=== PATIENT | male | born 1985 | race Caucasian/White ===

== ENCOUNTER 2019-12-26 21:51 | Inpatient (IN) | payer MEDICAID ==
[~2019-12-26] VITALS: Ht 167.6 cm; Wt 94.8 kg
[2019-12-26 22:01] VITALS: BP_SYST 111
--- NOTE | 2019-12-26 22:31 | NUR ---
Placed in room 7 . Placed on shipyard painter helper, blood pressure machine and pulse oximeter. To gown for exam. Side rails up. Report given to SAVI GOOD.
--- NOTE | 2019-12-26 22:45 | NUR ---
Pt brought in by ALS. Pt awake, alert, oriented x4. Pt states that he had sharp chest pain today starting at 2100. Pt states that chest pain radiates to the L shoulder, L arm, and back. Pt states that the pain was unprovoked, and has no relieving factors. pt states he has mild sob, especcially when taking deep breaths. Pt denies syncope, dizziness, nausea, vomiting, diarrhea. Pt denies any other medical complaint at this time. Pt resting in ed bed comfortably, no acute distress at this time. vss
--- NOTE | 2019-12-26 23:26 | NUR ---
ER at bedside examining patient.
[2019-12-26 23:44] LABS: BASOPHILS % (AUTO) 0.4 % (0.0-2.0); EOSINOPHILS # (AUTO) 0.1 K/uL (0.0-0.4); EOSINOPHILS % (AUTO) 0.6 % (0.0-4.0); HEMATOCRIT 40.1 % (36-54); HEMOGLOBIN 13.6 g/dL (14.0-18.0); LYMPHOCYTES % (AUTO) 10.8 % (20.5-51.5); MEAN CORPUSCULAR HEMOGLOBIN 30 pg (27-31); MEAN CORPUSCULAR HGB CONC 34 % (32-36); MEAN CORPUSCULAR VOLUME 88 fL (79.0-98.0); MONOCYTES # (AUTO) 0.8 K/uL (0.0-1.0); MONOCYTES % (AUTO) 8.3 % (1.7-9.3); NEUTROPHILS # (AUTO) 7.5 K/uL (1.8-7.7); NEUTROPHILS % (AUTO) 79.9 % (40.0-70.0); PLATELET COUNT (AUTO) 213 K/uL (130-430); RED BLOOD CELL COUNT(AUTO) 4.56 MIL/uL (4.2-6.2); RED CELL DISTRIBUTION WIDTH 13.8 % (9.0-15.0); WHITE BLOOD COUNT (AUTO) 9.4 K/uL (4.8-10.8)
[2019-12-26 23:57] LABS: CALCIUM 8.6 mg/dL (8.4-11.0); CREATININE 0.7 mg/dL (0.55-1.30); POTASSIUM 3.5 mmol/L (3.5-5.1)
[2019-12-27] VITALS (13 sets, daily range): BP systolic 117–147
[2019-12-27] MEDS ORDERED: MORPHINE 4 MG/ML INJ. SYRINGE IVP ONE
[2019-12-27 00:01] LABS: PROTHROMBIN TIME 10.4 SECS (9.5-12.5)
[2019-12-27 00:11] LABS: ALBUMIN 3.5 g/dL (3.4-4.8); TOTAL BILIRUBIN 0.3 mg/dL (0.0-1.0)
--- NOTE | 2019-12-27 00:40 | NUR ---
Pt resting in ED bed comfortably. No acute distress at this time. Pt states he is feeling much better after pain meds.
[2019-12-27] MEDS ORDERED: IOHEXOL 350 mgI/mL, 150 ML INFUS..BTL IV ONE (01:49)
--- NOTE | 2019-12-27 02:00 | NUR ---
Pt resting in ED bed. Pt requested lights be turned off.
[2019-12-27] MEDS ORDERED: fentaNYL CITRATE/PF 100 MCG/2 ML AMP IVP ONE (02:15)
[2019-12-27] MEDS ORDERED: ENOXAPARIN SODIUM 100 MG/ML SYRINGE SUBCUT ONE ×2 (02:30→15:30)
--- NOTE | 2019-12-27 03:35 | NUR ---
Pt States pain is mildy improved. No other medical complaints at this time. Pt denies shortness of breath
--- NOTE | 2019-12-27 04:15 | NUR ---
Patient will be admitted to care of . Admitted to Tele unit. Will go to room 116A. Belongings list completed. Complete and up to date summary report printed. SBAR report to be given at bedside with opportunity for questions.
--- NOTE | 2019-12-27 05:50 | NUR ---
Transfer to Tele via ACLS protocol. Licensed nurse present. IV present no signs or symptoms of infiltration.
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
--- NOTE | 2019-12-27 06:22 | NUR ---
pt c/o severe pain to his chest , will call
--- NOTE | 2019-12-27 06:28 | NUR ---
MD CALLED : DR BARAHONA CALLED , NOTIFIED MD THAT PT IS C/O SEVERE PAIN TO HEENA CHEST , MD ORDERED MORPHINE 2 MG IVP Q4HRS PRN FOR SEVERE PAIN .
[2019-12-27] MEDS: MORPHINE 2 MG/ML INJ. SYRINGE IVP PRN ×3 (06:41→23:37)
--- NOTE | 2019-12-27 07:30 | NUR ---
REPORT RECEIVED FROM NIGHT RN. PATIENT AAOX4, IN NO APPARENT DISTRESS, HOWEVER CONDITION APPEARS UNPREDICTABLY GUARDED.
--- NOTE | 2019-12-27 07:30 | NUR ---
CLOSING NOTES; REPORT GIVEN TO RN AT BEDSIDE ; PT IS STILL C/O PAIN , PRIMARY RN IS AWARE . PT RECEIVED PAIN MEDICATION EARLIER . REQUESTED RN TO NOTIFY .
--- NOTE | 2019-12-27 08:30 | NUR ---
Patient voided 350 ml via urinal. Urine color dark yellow
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
--- NOTE | 2019-12-27 08:45 | NUR ---
CALL TO DR BARAHONA RE: PATIENT IN SEVERE PAIN 08/22, NO AVAIL PRN MEDS FOR ADMINISTRATION NOW. STATES HE WILL SEE PATIENT IN 15 MIN.
--- NOTE | 2019-12-27 09:03 | NUR ---
ROUNDS WITH DR BARAHONA TO PATIENTS ROOM. PATIENT IS ALBANIAN SPEAKER ONLY.
--- NOTE | 2019-12-27 09:06 | NUR ---
MD SAW PATIENT, ORDERED STAT CT OF ABDOMEN, CONSULT FOR PULMO.-DR MUÑIZ CALLED BY . NEW PAIN MED ORDER. PENDING TRANSFER TO ICU. WOOL PULLER MADE AWARE.
[2019-12-27] MEDS ORDERED: LORazepam 2 MG/ML VIAL IVP PRN (09:15)
[2019-12-27] MEDS ORDERED: MUPIROCIN 2% TOPICAL OINTMENT 22 GM NS PRN (09:15)
[2019-12-27] MEDS ORDERED: ACETAMINOPHEN 325 MG TABLET PO PRN (09:15)
[2019-12-27] MEDS ORDERED: MAGNESIUM SULFATE 50 ML IV PRN (09:15)
[2019-12-27] MEDS ORDERED: ONDANSETRON HCL 4 MG/2 ML VIAL IVP PRN ×2 (09:15→10:00)
[2019-12-27] MEDS ORDERED: ZOLPIDEM TARTRATE 5 MG TABLET PO PRN (09:15)
--- NOTE | 2019-12-27 09:16 | NUR ---
CONSULTATION PAGED/CALLED Reason for Consultation: [] L CHEST PAIN Person Who was Notified: [] LENA FROM ICU (DR SCHUSTER WAS IN ICU) Consulting Physician: [] DR SCHUSTER Lead Data Architect Specialty: [] GEOGRAPHIC INFORMATION SCIENTIST Ordering Physician: [] DR BARAHONA
--- NOTE | 2019-12-27 09:30 | NUR ---
RECIEVED CALL FROM DR LINDQUIST -SURGEON, GAVE REPORT OF PATIENT STATUS, DR VERBALIZED HAVING PATIENT SENT TO A TRAUMA CENTER. GAVE PHE AT THIS POINT TO DR BARAHONA AT THE NURSES STATION.
--- NOTE | 2019-12-27 09:33 | NUR ---
CONSULTATION PAGED/CALLED Reason for Consultation: [] INT ABD PAIN Person Who was Notified: [] TYLER Consulting Physician: [] DR LINDQUIST Die Maker Apprentice Specialty: [] GEN SURGEON Ordering Physician: [] DR Lita BARAHONA
[2019-12-27] MEDS ORDERED: HYDROmorphone 2 MG/ML VIAL ONE (09:35)
--- NOTE | 2019-12-27 09:50 | NUR ---
PATIENT MEDICATED FOR PAIN 08/22 EARLIER W/ DILAUDID 2MG, @ PRESENT VERBALIZES RELIEF FROM PAIN- 03/22. ON GURNEY, BEING TRANSPORTED TO CT SCAN FOR STAT CT OF ABD AND PELVIS. CONDITION GUARDED.
[2019-12-27] MEDS ORDERED: IOHEXOL 100 ML IV ONE (10:08)
--- NOTE | 2019-12-27 10:15 | NUR ---
PATIENT BACK FROM CT SCAN. AAOX4. VANDANA.
--- NOTE | 2019-12-27 11:56 | NUR ---
DR BARAHONA CALLED, RETURNED CALL NEW ORDERS FOR Q2H DILAUDID 2MG IVP. BLADDER SCAN DONE WNL 175, NO DISTRESS, PT W/ NO C/O SUPRAPUBIC PAIN, VOIDED 350ML EARLIER (829) WITHOUT C/O PAIN OR DISCOMFORT, DARK JEAN COLOR.
--- NOTE | 2019-12-27 13:19 | NUR ---
RAPID RESPONSE IN PROGRESS. ALL DESIGNATED PERSONNEL AT BEDSIDE.
--- NOTE | 2019-12-27 13:35 | NUR ---
PT FOR TRANSFER TO ICU, PATIENT W/ A PATENT RIGHT AC 20G IV HL, NON-REBREATHER MASK IN USE ON Pt., CXR DONE, ABG DONE....SEE RAPID RESPONSE REPORT FOR ADDITIONAL DETAILS.
--- NOTE | 2019-12-27 13:40 | NUR ---
DR BARAHONA CALLED FOR ORDERS AND MADE AWARE OF PATIENT STATUS. ASKED FOR US TO CALL PROJ MGR DR MUÑIZ.
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
--- NOTE | 2019-12-27 13:50 | NUR ---
ER MD DR ROY SPOKE W/ DR BARAHONA AND DR MUÑIZ AT NURSES STATION, RE: PATIENT AND PRESENT STATUS.
--- NOTE | 2019-12-27 14:05 | NUR ---
REPORT TO HEEL BOOM OPERATORFLORENTINO BARNES.
--- NOTE | 2019-12-27 14:10 | NUR ---
Received patient and endorsed report. Patient denies pain. Side rails x 3 up. Call light with in reach.
--- NOTE | 2019-12-27 14:30 | NUR ---
Patient left floor for ct scan of head.
--- NOTE | 2019-12-27 14:40 | NUR ---
ER MD at bedside due request due to patient's statement of unable to breathe, respirations at 42, heart rate of 154, 02 sat on nonrebreather 15 liters 96.
[2019-12-27] MEDS ORDERED: ENOXAPARIN SODIUM 60 MG/0.6 ML SYRINGE SUBCUT ONE (15:00)
--- NOTE | 2019-12-27 15:30 | NUR ---
Transferred patient to room 127 A for ICU status. Patient tolerated via gurney on non-rebreather 15 liters and portable tele and 02 monitor, tolerated well. informed of transfer. Set patient up on continuous monitoring. Assessed vital signs. Denies pain.
[2019-12-27] MEDS: D5NS 1,000 ML IV SCH ×2 (16:02→20:18)
[2019-12-27] MEDS: HYDROmorphone 2 MG/ML VIAL IVP PRN ×2 (16:08→20:17)
--- NOTE | 2019-12-27 16:40 | NUR ---
MD Short new order to change nonrebreather to oximizer 4 liters keep sats over 92. Patient tolerated change well, satting at 96. Respiratory therapist aware.
--- NOTE | 2019-12-27 18:20 | NUR ---
Offered to perform CHG bath, change gown, perform oral and perineal care, patient requested to have perform tasks instead.
--- NOTE | 2019-12-27 18:30 | NUR ---
PSYCHIATRIC NP CHARLEEN OF [facility] CONFIRMED THAT SHE HAD RECEIVED ALL MEDICAL INFORMATION THRU FAX. SHE STATED THAT SHE WILL CONTACT THE TRAUMATIST FOR THIS MATTER.
--- NOTE | 2019-12-27 18:55 | NUR ---
TELEMARKETER SUPERVISOR. CHARLEEN OF [facility] CALLED BACK AND STATED THAT JIMENEZ DAHL (INTERNAL CONTROLS ANALYST) HAD SEEN THE REPORT. SHE ALSO SAID THAT THE PULMONOGIST EXPRESSED THAT THE PATIENT IS NOT A CANDIDATE FOR AN IVC FILTER, THAT HE MAY NEED TO BE ON ELIQUIS MEDS. DR BARAHONA WAS PAGED, HE RETURNED THE CALL, COMMUNICATED TO THE MD ON THE INTERNAL CONTROLS ANALYST'S ADVICE. HE SAID TO CONSULT A GOLF TOURNAMENT CONSULTANT, DR SU.
--- NOTE | 2019-12-27 19:15 | NUR ---
OPENING NOTE SBAR REPORT RECEIVED FROM RENEE GOOD. CARE ASSUMED. PT LAYING IN BED SLEEPING. PT ANO X 4. PT ON 4L OXIMIZER SATURATION @ 91%. RESPIRATION EVEN AND UNLABORED. PT SINUS TACHYCARDIA ON MONITOR RATE OF 132. PT HAS 20G TO RIGHT AC RUNNING D5/NS @ 100 ML/HR. NO EDEMA NOTED. PT VOIDING IN URINAL. URINE JEAN. SKIN INTACT. AT BEDSIDE. BED LOCKED IN LOWEST POSITION. CALL LIGHT WITH IN REACH. SAFETY PRECAUTIONS IN PLACE. WILL CONTINUE TO MONITOR.
--- NOTE | 2019-12-27 19:28 | NUR ---
Endorsed and gave report to oncoming nurse. Patient in bed in no acute distress. Denies pain. Breathing even and unlabored. Call light with in reach. Side rails x 3 up.
--- NOTE | 2019-12-27 19:38 | NUR ---
CONSULT: CONSULT CALLED FOR DR. SU I SPOKE WITH BHAVNA LIANG DR. CAD DRAFTSMAN AT THIS MOMENT REASON FOR CONSULT: PULMONARY EMBOLISM REQUESTING CONSULT: DR. BARAHONA SUPERVISOR PHOSPHATIC FERTILIZER PHONE NUMBER: [phone]
[2019-12-27] MEDS: ENOXAPARIN SODIUM 100 MG/ML SYRINGE SUBCUT SCH (20:19)
--- NOTE | 2019-12-27 20:54 | NUR ---
MD RANGEL SPOKE TO MD MUÑIZ REGARDING TRANSFER UPDATE. MD MUÑIZ AWARE PT NOT A CANDIDATE FOR TRANSFER. DR. MUÑIZ STATES SHE WILL SEE PATIENT IN THE MORNING. WILL CONTINUE TO MONITOR.
--- NOTE | 2019-12-27 23:38 | NUR ---
MD UPDATE SPOKE TO DR. POLANCO BULK CLERK. ORDERS UPDATED. WILL CONTINUE TO MONITOR.
[2019-12-28] VITALS (24 sets, daily range): BP systolic 121–152
--- NOTE | 2019-12-28 00:05 | NUR ---
MD UPDATE SPOKE TO DR. POLANCO. INFORMED MD WE ARE UNABLE TO ORDER PROTHROMBIN MUTATION LAB AND LUPUS ANTICOAGULATION PANEL. MD AWARE. WILL CONTINUE TO MONITOR.
[2019-12-28] MEDS: HYDROmorphone 2 MG/ML VIAL IVP PRN ×10 (00:21→22:48)
[2019-12-28 06:48] LABS: BASOPHILS % (AUTO) 0.2 % (0.0-2.0); EOSINOPHILS % (AUTO) 0.1 % (0.0-4.0); HEMATOCRIT 37.2 % (36-54); HEMOGLOBIN 12.5 g/dL (14.0-18.0); LYMPHOCYTES # (AUTO) 0.7 K/uL (1.0-5.5); LYMPHOCYTES % (AUTO) 4.6 % (20.5-51.5); MEAN CORPUSCULAR HEMOGLOBIN 30 pg (27-31); MEAN CORPUSCULAR HGB CONC 34 % (32-36); MEAN CORPUSCULAR VOLUME 89 fL (79.0-98.0); MONOCYTES # (AUTO) 1.5 K/uL (0.0-1.0); MONOCYTES % (AUTO) 9.1 % (1.7-9.3); NEUTROPHILS # (AUTO) 13.9 K/uL (1.8-7.7); PLATELET COUNT (AUTO) 237 K/uL (130-430); RED BLOOD CELL COUNT(AUTO) 4.18 MIL/uL (4.2-6.2); RED CELL DISTRIBUTION WIDTH 13.5 % (9.0-15.0); WHITE BLOOD COUNT (AUTO) 16.2 K/uL (4.8-10.8)
[2019-12-28 07:03] LABS: CREATININE 0.67 mg/dL (0.55-1.30); POTASSIUM 3.7 mmol/L (3.5-5.1)
--- NOTE | 2019-12-28 07:15 | NUR ---
patient complained of left lower chest/ribs pain 9/10 scale sharp medicated with dilaudid 2 mg ivp. am assessment done. ivf infusing @ right ac#20 with good blood return.family at bedside. informed about the poc verbalized understanding. encourage to call when assistance needed. will monitor.
--- NOTE | 2019-12-28 07:20 | NUR ---
CLOSING NOTE PT LAYING IN BED. NO APPARENT DISTRESS NOTED. SBAR REPORT GIVEN TO KRISTOFER GOOD. CARE ENDORSED.
[2019-12-28] MEDS: D5NS 1,000 ML IV SCH ×2 (07:35→19:10)
[2019-12-28] MEDS: ENOXAPARIN SODIUM 100 MG/ML SYRINGE SUBCUT SCH ×2 (09:00→21:21)
--- NOTE | 2019-12-28 09:22 | NUR ---
New consult paged to Dr. Knight. Spoke with Emiliana solano.
--- NOTE | 2019-12-28 10:06 | NUR ---
MD rounds: Seen by Dr. Erickson discuss about the POC with pt and spouse at bedside. pt having hiccups new order received.
[2019-12-28] MEDS ORDERED: LACT1CAP58 PO (10:22)
[2019-12-28] MEDS ORDERED: MELA3TAB64 PO (10:22)
[2019-12-28] MEDS ORDERED: DOCU250C14 PO (10:22)
[2019-12-28] MEDS ORDERED: WARF2TAB2 PO (10:22)
[2019-12-28] MEDS ORDERED: GABA-533 PO (10:22)
[2019-12-28] MEDS ORDERED: LIP40 PO (10:22)
[2019-12-28] MEDS ORDERED: GABA-529 PO (10:22)
[2019-12-28] MEDS ORDERED: TRAM50TA2 PO (10:24)
[2019-12-28] MEDS ORDERED: GABAPENTIN 100 MG CAPSULE PO ONE (11:00)
[2019-12-28] MEDS ORDERED: CEFEPIME 1 GM in D5W 50 ML IV ONE (12:00)
--- NOTE | 2019-12-28 12:19 | NUR ---
Nutrition Update Fransico Scale 17 noted. Pt admitted for bilateral PNA Diet: 2gmNa BMI: 33.8 kg/m2 RD to follow per nutrition care standards.
[2019-12-28] MEDS: THORAZINE (chlorproMAZINE) 25 MG TAB PO PRN ×2 (13:28→23:18)
--- NOTE | 2019-12-28 14:47 | NUR ---
oncology/hematology: Md Guy is here seen patient and discuss about the POc with patient and family member at the bedside.
--- NOTE | 2019-12-28 14:59 | NUR ---
urine sample was collected and sent to lab for urinalysis.
[2019-12-28 15:20] LABS: BILIRUBIN,URINE 2+ (NEGATIVE); BLOOD, URINE 2+ (NEGATIVE); COLOR,URINE ORANGE (YELLOW); GLUCOSE,URINE NEGATIVE (NEGATIVE); KETONES,URINE NEGATIVE (NEGATIVE); LEUKOCYTE ESTERASE ,URINE NEGATIVE (NEGATIVE); NITRITE, URINE POSITIVE (NEGATIVE); PH,URINE 5.5 (5.0-8.0); PROTEIN URINE 2+ (NEGATIVE); UROBILINOGEN,URINE 0.2 (0.2-1.0)
--- NOTE | 2019-12-28 15:40 | NUR ---
patient resting, no s/s of distress. daughter at the bedside.
[2019-12-28 15:56] LABS: CLARITY/URINE HAZY (CLEAR)
[2019-12-28 16:02] LABS: RBC,URINE 0-3 /HPF (0-3)
[2019-12-28 16:09] LABS: BACTERIA,URINE MODERATE /HPF (None Seen); WBC,URINE 0-3 /HPF (0-3)
[2019-12-28 16:10] LABS: HYALINE CASTS, URINE 0-10 /LPF (None Seen)
[2019-12-28 16:11] LABS: MUCUS,URINE 1+ /LPF (None Seen)
--- NOTE | 2019-12-28 17:00 | NUR ---
patient c/o left lower chest pain especially moving, medicated with dilaudid 2 mg ivp. informed about the action and possible adverse reaction verbalized understanding. family at the bedside.
--- NOTE | 2019-12-28 19:16 | NUR ---
all needs mets, no s/s of distress. no significant changes noted. pain medicated. ivf infusing well site patent. vital sign stable, afebrile. report given to bushra GOOD.
--- NOTE | 2019-12-28 19:20 | NUR ---
OPENING NOTE SBAR REPORT RECEIVED FROM RENEE GOOD. CARE ASSUMED. PT LAYING IN BED SLEEPING. PT ANO X 4. PT ON 4L OXIMIZER SATURATION @ 96%. RESPIRATION EVEN AND UNLABORED. PT SINUS TACHYCARDIA ON MONITOR RATE OF 123. PT HAS 20G TO RIGHT AC RUNNING D5/NS @ 100 ML/HR. NO EDEMA NOTED. PT VOIDING IN URINAL. URINE JEAN. SKIN INTACT. DAUGHTER AT BEDSIDE. BED LOCKED IN LOWEST POSITION. CALL LIGHT WITH IN REACH. SAFETY PRECAUTIONS IN PLACE. WILL CONTINUE TO MONITOR.
[2019-12-28] MEDS: CEFEPIME 1 GM in D5W 50 ML IV SCH (21:20)
[2019-12-28] MEDS: GABAPENTIN 100 MG CAPSULE PO SCH (21:21)
[2019-12-29] VITALS (24 sets, daily range): BP systolic 103–144
[2019-12-29] MEDS: HYDROmorphone 2 MG/ML VIAL IVP PRN ×5 (03:04→22:00)
[2019-12-29] MEDS: D5NS 1,000 ML IV SCH ×3 (03:15→21:09)
[2019-12-29 06:47] LABS: BASOPHILS % (AUTO) 0.3 % (0.0-2.0); EOSINOPHILS # (AUTO) 0.1 K/uL (0.0-0.4); EOSINOPHILS % (AUTO) 0.9 % (0.0-4.0); HEMOGLOBIN 10.8 g/dL (14.0-18.0); LYMPHOCYTES % (AUTO) 10.8 % (20.5-51.5); MEAN CORPUSCULAR HEMOGLOBIN 30 pg (27-31); MEAN CORPUSCULAR HGB CONC 34 % (32-36); MEAN CORPUSCULAR VOLUME 89 fL (79.0-98.0); MONOCYTES # (AUTO) 0.8 K/uL (0.0-1.0); MONOCYTES % (AUTO) 8.5 % (1.7-9.3); NEUTROPHILS # (AUTO) 7.5 K/uL (1.8-7.7); NEUTROPHILS % (AUTO) 79.5 % (40.0-70.0); PLATELET COUNT (AUTO) 208 K/uL (130-430); RED BLOOD CELL COUNT(AUTO) 3.61 MIL/uL (4.2-6.2); RED CELL DISTRIBUTION WIDTH 13.2 % (9.0-15.0); WHITE BLOOD COUNT (AUTO) 9.5 K/uL (4.8-10.8)
--- NOTE | 2019-12-29 07:15 | NUR ---
Opening Note Received bedside report from endorsing RN for continuation of care. Received patient awake and resting in bed, denies any SOB or pain. No signs or symptoms of acute distress noted. Bed locked in lowest position, bed alarm on, and call light within reach. Fall and safety precautions in place.
[2019-12-29 07:21] LABS: ALBUMIN 2.6 g/dL (3.4-4.8); CALCIUM 8.3 mg/dL (8.4-11.0); CREATININE 0.58 mg/dL (0.55-1.30); POTASSIUM 3.4 mmol/L (3.5-5.1); TOTAL BILIRUBIN 0.7 mg/dL (0.0-1.0)
[2019-12-29] MEDS: THORAZINE (chlorproMAZINE) 25 MG TAB PO PRN ×2 (08:05→18:18)
[2019-12-29] MEDS: GABAPENTIN 100 MG CAPSULE PO SCH ×2 (08:05→21:09)
[2019-12-29] MEDS: CEFEPIME 1 GM in D5W 50 ML IV SCH ×2 (08:05→21:09)
[2019-12-29] MEDS: ENOXAPARIN SODIUM 100 MG/ML SYRINGE SUBCUT SCH ×2 (08:08→21:10)
--- NOTE | 2019-12-29 08:30 | NUR ---
Dr. Palumbo at bedside examining patient. New orders received.
--- NOTE | 2019-12-29 08:50 | NUR ---
Dr. Erickson at bedside examining patient. No new orders.
[2019-12-29] MEDS ORDERED: LORazepam 2 MG/ML VIAL IVP PRN (11:30)
--- NOTE | 2019-12-29 11:39 | NUR ---
Dr. Short at bedside examining patient. New orders received.
--- NOTE | 2019-12-29 14:51 | NUR ---
Family at bedside. Updated on patient status and plan of care. All questions answered clearly and education provided.
--- NOTE | 2019-12-29 15:57 | NUR ---
Dietitian Recommendations * Continue 2gmNa diet * Ensure Clear w/ meals. Each serving provides 240kcal and 8gPro. * Encourage PO intake * [place] food preferences as able Please see Nutrition Assessment for further details. LT, RD
--- NOTE | 2019-12-29 19:25 | NUR ---
Endorsement Endorsed bedside report to oncoming RN using SBAR approach for continuation of care.
--- NOTE | 2019-12-29 19:57 | NUR ---
Patient awake on and off is VERBALLY Responsive indicative of needs HOB elevated using bedside URINAL as needed skin dry warm chest movement symmetrical call huggins given to patient / .
--- NOTE | 2019-12-29 22:36 | NUR ---
DILAUDID 1 MG IVP ADMINISTER FOR GENERAL PAIN 7/10 OFF LOADING WITH POSITION ALSO HELPFUL .
--- NOTE | 2019-12-29 22:37 | NUR ---
LOVENOX 100 MG SUB Q. administer as ordered no S/SX OF ADVERSE REACTION NO BLEEDING NOTED .
[2019-12-30] VITALS (19 sets, daily range): BP systolic 107–138
--- NOTE | 2019-12-30 01:41 | NUR ---
OXYMIZER @ 4 LPM CHEST MOVEMENT SYMMETRICAL SKIN DRY WARM ENCOURAGE POSITION CHANGE RESPIRATIONS REGULAR ALSO UNLABORED .
--- NOTE | 2019-12-30 01:43 | NUR ---
02 SAT 96 % HOB elevated chest movement symmetrical patient awake on & off call huggins given to patient .
[2019-12-30] MEDS: HYDROmorphone 2 MG/ML VIAL IVP PRN ×6 (02:14→23:06)
--- NOTE | 2019-12-30 02:23 | NUR ---
DILAUDID 1MG IVP administer for ACUTE PAIN 05/22 position change on schedule also helpful .
[2019-12-30 06:14] LABS: BASOPHILS % (AUTO) 0.5 % (0.0-2.0); EOSINOPHILS # (AUTO) 0.1 K/uL (0.0-0.4); EOSINOPHILS % (AUTO) 2.7 % (0.0-4.0); HEMATOCRIT 31.6 % (36-54); HEMOGLOBIN 10.5 g/dL (14.0-18.0); LYMPHOCYTES # (AUTO) 1.2 K/uL (1.0-5.5); LYMPHOCYTES % (AUTO) 21.1 % (20.5-51.5); MEAN CORPUSCULAR HEMOGLOBIN 29 pg (27-31); MEAN CORPUSCULAR HGB CONC 33 % (32-36); MEAN CORPUSCULAR VOLUME 88 fL (79.0-98.0); MONOCYTES # (AUTO) 0.5 K/uL (0.0-1.0); MONOCYTES % (AUTO) 8.2 % (1.7-9.3); NEUTROPHILS # (AUTO) 3.8 K/uL (1.8-7.7); NEUTROPHILS % (AUTO) 67.5 % (40.0-70.0); PLATELET COUNT (AUTO) 233 K/uL (130-430); RED BLOOD CELL COUNT(AUTO) 3.57 MIL/uL (4.2-6.2); RED CELL DISTRIBUTION WIDTH 13.4 % (9.0-15.0); WHITE BLOOD COUNT (AUTO) 5.6 K/uL (4.8-10.8)
--- NOTE | 2019-12-30 06:22 | NUR ---
CHG Bed bath given patient Resting & tolerated .
[2019-12-30 06:30] LABS: CALCIUM 8.6 mg/dL (8.4-11.0); CHLORIDE 102 mmol/L (98-107); CREATININE 0.53 mg/dL (0.55-1.30); GLUCOSE 99 mg/dL (70-99); POTASSIUM 3.3 mmol/L (3.5-5.1); SODIUM SERUM 135 mmol/L (136-145); UREA NITROGEN, BLOOD 8 mg/dL (8-21)
[2019-12-30 06:38] LABS: GFR AFRICAN AMERICAN 230 mL/min (>90)
[2019-12-30 06:39] LABS: ANION GAP < 3 (5-15)
[2019-12-30] MEDS: CEFEPIME 1 GM in D5W 50 ML IV SCH ×2 (07:52→20:09)
[2019-12-30] MEDS: GABAPENTIN 100 MG CAPSULE PO SCH ×2 (07:52→20:09)
--- NOTE | 2019-12-30 07:53 | NUR ---
AM ASSESSMENT. PT AWAKENED TO VERBAL COMMAND, COMPLAINED OF LEFT RIB PAIN, 8/10 SCALE, HELPED PT SIT UPRIGHT IN BED, WITH WEAKNESS TO LEFT SIDE OF HIS BODY, DILAUDID 1 MG IVP FOR RIB PAIN, TRAY SERVED FOR BREAKFAST, ASSISTANCE REQUIRED TO OPEN/SLICE FOOD ON HIS PLATE.
[2019-12-30] MEDS: ENOXAPARIN SODIUM 100 MG/ML SYRINGE SUBCUT SCH ×2 (07:54→20:11)
--- NOTE | 2019-12-30 08:15 | NUR ---
RELEIF. PT EXPRESSED GOOD RELIEF OF PAIN.
--- NOTE | 2019-12-30 10:20 | NUR ---
PAGED PAGED DR.[facility] AT [phone] SPOKE WITH SHARON.
--- NOTE | 2019-12-30 10:20 | NUR ---
AUTOMOBILE LIGHTS ASSEMBLER. DR SU AT BEDSIDE, [employer] PHONE BEING USED TO HELP WITH TRANSLATION.
--- NOTE | 2019-12-30 12:47 | NUR ---
PAIN. PT VERBALIZED PAIN TO LEFT SIDE OF HIS RIBS, DILAUDID 1 MG IVP ADMINISTERED.
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
[2019-12-30 13:10] LABS: ANTITHROMBIN III ACTIVITY 117 % (75-135)
[2019-12-30] MEDS: NACL 0.9% 1,000 ML IV SCH (15:50)
--- NOTE | 2019-12-30 17:40 | NUR ---
TO [facility]. TRANSFERRED PT TO ROOM 120-A, VIA MATERIAL DISPATCHER AND [place] O2. PERSONAL BELONGINGS ACCOUNTED FOR, REPORT GIVEN TO FLORENTINO FANG.
--- NOTE | 2019-12-30 18:00 | NUR ---
transfer notes rec patient from icu with dx of bilateral pneumonia. awake alert speaks bulgarian only. ivf infusing well on the r ac. no infiltration noted. unable to move l arm at this time. resp easy and unlabored. no osb noted. bed to the lowest position and side rails up and locked. call light within reached and pt is close to the nurse station. at bedside with patient.
--- NOTE | 2019-12-30 19:15 | NUR ---
OPENING NOTES Pt and endorsement received from day shift nurse. Pt is AAOx4, lying in bed. Pt on O2 inhalation at 4L via oxymizer. Pt on IVF with NS at 60ml/hr and infusing well on right AC G20. Pt complaining of pain on left side of his abdomen, educated pt that pain med will be given when it's due. No signs of acute distress or SOB noted. Encouraged to use call light when needed. Safety precautions in place with 3 side rails up, wheels locked, bed alarm on and in lowest level. Call light with pt. Will continue to monitor.
--- NOTE | 2019-12-30 20:12 | NUR ---
ROUNDS All due meds and pain med given. No signs of acute distress noted. IVF infusing well. Safety precautions in place and call light with pt. Will continue to monitor.
[2019-12-30 21:37] LABS: PROTEIN S ACTIVITY 52 % (63-140)
[2019-12-30] MEDS: POTASSIUM CHLORIDE 20 MEQ TAB.PRT.SR PO PRN (22:22)
--- NOTE | 2019-12-30 23:06 | NUR ---
PAIN MED Pt complained of left sided abdominal pain. BP is 124/72mmHg. Dilaudid 1mg IVP given as ordered. Educated pt on safety precautions and side effects like dizziness, pt verbalized understanding. Will continue to monitor.
[2019-12-31 00:56] VITALS: BP_SYST 124
--- NOTE | 2019-12-31 02:00 | NUR ---
ROUNDS Pt is resting in bed with both eyes closed, with visible chest rise and fall with non-labored breathing noted. No complains of pain and no signs of acute distress noted. IVF infusing well. Safety precautions in place and call light with pt. Will continue to monitor.
[2019-12-31] MEDS: NACL 0.9% 1,000 ML IV SCH ×2 (03:10→08:37)
--- NOTE | 2019-12-31 04:15 | NUR ---
ROUNDS Pt is resting in bed with both eyes closed, with visible chest rise and fall with non-labored breathing noted. No signs of acute distress or SOB noted. IVf infusing well. No needs at this time. Safety precautions in place and call light with pt. Will continue to monitor. .
[2019-12-31 05:03] VITALS: BP_SYST 125
[2019-12-31] MEDS: HYDROmorphone 2 MG/ML VIAL IVP PRN ×3 (05:06→19:58)
--- NOTE | 2019-12-31 06:21 | NUR ---
CLOSING NOTES Pt is resting in bed with both eyes closed, with visible chest rise and fall with non-labored breathing noted. No complains of pain at this time. No signs of acute distress or SOB noted. IVF infusing well. All needs attended throughout the shift. Safety precautions maintained with 3 side rails up, wheels locked, bed alarm on and in lowest level. Call light with pt. Will continue to monitor. .
[2019-12-31 07:21] LABS: BASOPHILS % (AUTO) 0.5 % (0.0-2.0); EOSINOPHILS # (AUTO) 0.1 K/uL (0.0-0.4); EOSINOPHILS % (AUTO) 2.4 % (0.0-4.0); HEMATOCRIT 32.3 % (36-54); HEMOGLOBIN 10.9 g/dL (14.0-18.0); LYMPHOCYTES # (AUTO) 0.7 K/uL (1.0-5.5); LYMPHOCYTES % (AUTO) 14.4 % (20.5-51.5); MEAN CORPUSCULAR HEMOGLOBIN 30 pg (27-31); MEAN CORPUSCULAR HGB CONC 34 % (32-36); MEAN CORPUSCULAR VOLUME 87 fL (79.0-98.0); MONOCYTES # (AUTO) 0.3 K/uL (0.0-1.0); NEUTROPHILS # (AUTO) 3.7 K/uL (1.8-7.7); NEUTROPHILS % (AUTO) 75.7 % (40.0-70.0); PLATELET COUNT (AUTO) 317 K/uL (130-430); RED CELL DISTRIBUTION WIDTH 13.1 % (9.0-15.0); WHITE BLOOD COUNT (AUTO) 4.9 K/uL (4.8-10.8)
[2019-12-31 07:25] LABS: CALCIUM 8.7 mg/dL (8.4-11.0); CREATININE 0.45 mg/dL (0.55-1.30); POTASSIUM 3.3 mmol/L (3.5-5.1)
[2019-12-31] MEDS: POTASSIUM CHLORIDE 20 MEQ TAB.PRT.SR PO PRN (08:36)
[2019-12-31] MEDS: CEFEPIME 1 GM in D5W 50 ML IV SCH ×2 (08:36→20:01)
[2019-12-31] MEDS: GABAPENTIN 100 MG CAPSULE PO SCH ×2 (08:36→20:01)
--- NOTE | 2019-12-31 08:39 | NUR ---
Scheduled medications given per order. Patient stable at this time.
[2019-12-31 08:40] VITALS: BP_SYST 123
[2019-12-31] MEDS: ENOXAPARIN SODIUM 100 MG/ML SYRINGE SUBCUT SCH ×2 (11:44→20:02)
[2019-12-31] MEDS ORDERED: POTASSIUM CHLORIDE 20 MEQ TAB.PRT.SR PO ONE (11:45)
--- NOTE | 2019-12-31 11:48 | NUR ---
Patient sitting in chair with Mechelle at bedside. Patient stable at this time. Ordered medication given.
[2019-12-31 12:00] VITALS: BP_SYST 125
--- NOTE | 2019-12-31 13:35 | NUR ---
Routine Patient medicated for 8/10 pain in left and right flank. Patient stable with at bedside.
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
[2019-12-31 16:02] VITALS: BP_SYST 135
--- NOTE | 2019-12-31 17:18 | NUR ---
Routine Patient resting comfortably in bed with no complaint of any pain at this time. Patient stable.
--- NOTE | 2019-12-31 19:31 | NUR ---
OPENING NOTES Pt and endorsement received from day shift nurse. Pt is AAOx4, lying in bed. Pt on O2 inhalation at 4L via oxymizer. Pt on IVF with NS at 60ml/hr and infusing well on right AC G20. No signs of acute distress or SOB noted. Encouraged to use call light when needed. Safety precautions in place with 3 side rails up, wheels locked, bed alarm on and in lowest level. Call light with pt. Will continue to monitor.
[2019-12-31 19:55] VITALS: BP_SYST 118
[2019-12-31] MEDS: DOCUSATE SODIUM 100 MG CAPSULE PO PRN (20:10)
--- NOTE | 2019-12-31 20:10 | NUR ---
ROUNDS All due meds given and pt tolerated well. Pt complained of pain on left rib with a scale of 7/10. Pain med given as ordered. Educated on safety and side effects like dizziness, pt verbalized understanding. IVF infusing well. Safety precautions in place and call light with pt. Will continue to monitor.
[2020-01-01 01:36] VITALS: BP_SYST 124
[2020-01-01] MEDS: HYDROmorphone 2 MG/ML VIAL IVP PRN ×5 (01:40→22:58)
--- NOTE | 2020-01-01 01:40 | NUR ---
PAIN MED Pt complained of left rib pain with a scale of 7/10. Vital signs taken and recorded. Dilaudid 1mg IVP given as ordered. No signs of acute distress noted. Safety precautions in place and call light with pt. Will continue to monitor.
[2020-01-01] MEDS: NACL 0.9% 1,000 ML IV SCH (06:03)
--- NOTE | 2020-01-01 07:13 | NUR ---
Received patient and endorsed report. Patient awake, alert, oriented and in no acute distress. Breathing even and unlabored on room air. Call light with in reach. Denies pain. Side rails x 3 up.
[2020-01-01 07:14] LABS: BASOPHILS % (AUTO) 0.7 % (0.0-2.0); EOSINOPHILS # (AUTO) 0.1 K/uL (0.0-0.4); EOSINOPHILS % (AUTO) 1.7 % (0.0-4.0); HEMOGLOBIN 11.9 g/dL (14.0-18.0); LYMPHOCYTES # (AUTO) 1.1 K/uL (1.0-5.5); LYMPHOCYTES % (AUTO) 22.3 % (20.5-51.5); MEAN CORPUSCULAR HEMOGLOBIN 30 pg (27-31); MEAN CORPUSCULAR HGB CONC 34 % (32-36); MEAN CORPUSCULAR VOLUME 87 fL (79.0-98.0); MONOCYTES # (AUTO) 0.4 K/uL (0.0-1.0); MONOCYTES % (AUTO) 8.7 % (1.7-9.3); NEUTROPHILS # (AUTO) 3.4 K/uL (1.8-7.7); NEUTROPHILS % (AUTO) 66.6 % (40.0-70.0); PLATELET COUNT (AUTO) 349 K/uL (130-430); RED BLOOD CELL COUNT(AUTO) 4.04 MIL/uL (4.2-6.2); RED CELL DISTRIBUTION WIDTH 12.8 % (9.0-15.0); WHITE BLOOD COUNT (AUTO) 5.1 K/uL (4.8-10.8)
[2020-01-01 07:40] LABS: CALCIUM 8.9 mg/dL (8.4-11.0); CREATININE 0.53 mg/dL (0.55-1.30); POTASSIUM 3.6 mmol/L (3.5-5.1)
[2020-01-01 08:00] VITALS: BP_SYST 124
[2020-01-01] MEDS: CEFEPIME 1 GM in D5W 50 ML IV SCH (08:03)
[2020-01-01] MEDS: GABAPENTIN 100 MG CAPSULE PO SCH ×2 (08:04→21:55)
[2020-01-01] MEDS: ENOXAPARIN SODIUM 100 MG/ML SYRINGE SUBCUT SCH ×2 (08:05→21:57)
[2020-01-01 11:51] LABS: PROTHROMBIN TIME 10.2 SECS (9.5-12.5)
[2020-01-01 12:00] VITALS: BP_SYST 115
[2020-01-01 16:00] VITALS: BP_SYST 121
[2020-01-01] MEDS ORDERED: WARFARIN SODIUM 5 MG TABLET PO ONE (18:00)
[2020-01-01 19:00] VITALS: BP_SYST 111
--- NOTE | 2020-01-01 19:14 | NUR ---
Patient in bed, awake, alert and in no acute distress. Side rails x 3 up. Call light with in reach. Endorsed patient and gave report to oncoming shift nurse.
[2020-01-02] VITALS: BP_SYST 113
[2020-01-02 04:00] VITALS: BP_SYST 109
[2020-01-02] MEDS: NACL 0.9% 1,000 ML IV SCH (05:10)
[2020-01-02 07:45] VITALS: BP_SYST 113
--- NOTE | 2020-01-02 07:46 | NUR ---
OPENING NOTE Patient resting in the bed. No acute distress. Denied of pain at this time. Skin warm and dry to touch. IV intact to RAC, no redness, no swelling, no drainage. On NS at 60ml/hr, infusing well. Safety environment maintained. Call light within reached. Bed locked in low position, side rails up, bed alarm on. Will continue to monitor.
--- NOTE | 2020-01-02 08:30 | NUR ---
SEEN AND EXAMINED BY VENANCIO VILLARREAL.
[2020-01-02] MEDS: GABAPENTIN 100 MG CAPSULE PO SCH ×2 (10:13→21:28)
[2020-01-02] MEDS: HYDROmorphone 2 MG/ML VIAL IVP PRN ×3 (10:15→19:03)
--- NOTE | 2020-01-02 10:15 | NUR ---
DILAUDID GIVEN Patient c/o back pain 05/22, Dilaudid 1mg IVP given as ordered. No acute distress. Safety measure maintained. Call light within reached. Bed locked in low position, side rails up, bed alarm on. Continue to monitor.
[2020-01-02] MEDS: ENOXAPARIN SODIUM 100 MG/ML SYRINGE SUBCUT SCH ×2 (10:16→21:28)
--- NOTE | 2020-01-02 10:16 | NUR ---
AM SCHEDULE MED GIVEN, TOLERATED WELL.
--- NOTE | 2020-01-02 11:22 | NUR ---
BATHROOM Assisted patient to bathroom using cane. No acute distress. Assisted back to bed, tolerated well. Safety measure maintained. Call light within reached. Bed locked in low position, side rails up, bed alarm on. Continue to monitor.
[2020-01-02 12:00] VITALS: BP_SYST 111
--- NOTE | 2020-01-02 12:20 | NUR ---
SEEN AND EXAMINED BY DR. BARAHONA [facility].
[2020-01-02 12:56] LABS: INR 1.1 (0.80-1.20); PROTHROMBIN TIME 11.4 SECS (9.5-12.5)
--- NOTE | 2020-01-02 14:10 | NUR ---
SEEN AND EXAMINED BY ZEKE RAYMOND.
[2020-01-02 16:00] VITALS: BP_SYST 108
--- NOTE | 2020-01-02 17:00 | NUR ---
ROUND Patient resting in the bed with eye closed. No acute distress. Safety measure maintained. Call light within reached. Bed locked in low position, side rails up, bed alarm on. Continue to monitor.
[2020-01-02] MEDS ORDERED: WARFARIN SODIUM 7.5 MG TABLET PO ONE (18:00)
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
--- NOTE | 2020-01-02 18:07 | NUR ---
Dietitian Recommendations * Recommend 2 gm Na diet w/ Ensure Clear TID, Judd BID (supplements provide an additional ~900 kcal/day, 29 gm protein/day) LP, RD Please refer to Nutrition F/U for details.
--- NOTE | 2020-01-02 18:48 | NUR ---
CLOSING NOTE Patient resting in the bed. No acute distress. PRN pain med given as needed. Skin warm and dry to touch. IV intact to RAC, no redness, no swelling, patent. All needs met. Safety environment maintained. Call light within reached. Bed locked in low position, side rails up, bed alarm on. Will endorse to night nurse.
[2020-01-02 20:00] VITALS: BP_SYST 118
[2020-01-03 00:22] VITALS: BP_SYST 123
[2020-01-03 04:00] VITALS: BP_SYST 124
[2020-01-03] MEDS: HYDROmorphone 2 MG/ML VIAL IVP PRN ×3 (05:48→20:37)
--- NOTE | 2020-01-03 07:50 | NUR ---
INITIAL NOTE RECEIVED PT IN BED, NO S/S OF DISTRESS OR SOB NOTED, PT HAS NO C/O PAIN AT THIS TIME, PT IN STABLE CONDITION, PT AAOX4, VERBAL. PT RESTING COMFORTABLY, BED AT LOWEST POSITION, CALL LIGHT WITHIN REACH, WILL CONTINUE TO MONITOR PT FOR ANY CHANGES, FALL AND SAFETY PRECAUTIONS IN PLACE.
[2020-01-03 08:10] VITALS: BP_SYST 102
[2020-01-03] MEDS: GABAPENTIN 100 MG CAPSULE PO SCH ×2 (08:48→20:35)
[2020-01-03] MEDS: ENOXAPARIN SODIUM 100 MG/ML SYRINGE SUBCUT SCH ×2 (08:49→20:41)
[2020-01-03] MEDS ORDERED: FAMOTIDINE 20 MG TABLET PO ONE (09:15)
--- NOTE | 2020-01-03 09:20 | NUR ---
MD ROUNDS DR JUN SERVIN, AWARE OF PATIENT'S CONDITION, AWARE THAT PT'S IV IS INFILTRATED AND SWOLLEN WITH YELLOW DRAINAGE, 1MM, PER MD TO ELEVATE AND PLACE ICE ON IT. IV REMOVED AND CATHETER INTACT, INSERTED NEW IV CATHETER ON RIGHT FOREARM, 20 GAUGE, SUCCESSFUL AFTER ONE ATTEMPT, ASEPTIC TECHNIQUE USED, PT TOLERATED. GAVE THE RECOMMENDATIONS FROM MD FROM HIS NOT FROM 01/01/2020, CHARGE NURSE AWARE.
[2020-01-03 09:30] LABS: INR 1.3 (0.80-1.20); PROTHROMBIN TIME 12.7 SECS (9.5-12.5)
--- NOTE | 2020-01-03 10:50 | NUR ---
ROUNDS PT IN BED, NO S/S OF DISTRESS OR SOB NOTED, PT HAS NO C/O PAIN AT THIS TIME, PT IN STABLE CONDITION. BED AT LOWEST POSITION, CALL LIGHT WITHIN REACH, WILL CONTINUE TO MONITOR PT FOR ANY CHANGES. PT TALKING TO AT BEDSIDE.
--- NOTE | 2020-01-03 12:30 | NUR ---
ROUNDS PT IN BED, NO S/S OF DISTRESS OR SOB NOTED, PT HAS NO C/O PAIN AT THIS TIME, PT IN STABLE CONDITION. BED AT LOWEST POSITION, CALL LIGHT WITHIN REACH, WILL CONTINUE TO MONITOR PT FOR ANY CHANGES. PT RESTING COMFORTABLY.
[2020-01-03 12:48] VITALS: BP_SYST 117
--- NOTE | 2020-01-03 16:16 | NUR ---
MD ROUNDS DR ANTONINO SERVIN, AWARE OF PATIENT'S CONDITION, PER MD PT CAN WALK AROUND WITH ASSIST. PHYSICAL THERAPY ALREADY EVALUATED PT.
[2020-01-03 16:39] VITALS: BP_SYST 114
[2020-01-03] MEDS ORDERED: WARFARIN SODIUM 5 MG TABLET PO ONE (18:00)
[2020-01-03] MEDS: HYDROcodone/ACETAMIN 5-325 MG TAB (NORCO/ VICODIN) PO PRN (18:14)
--- NOTE | 2020-01-03 18:29 | NUR ---
CLOSING NOTE PT IN BED, NO S/S OF DISTRESS OR SOB NOTED, PT HAS NO C/O PAIN AT THIS TIME, PT IN STABLE CONDITION, PT AAOX4, VERBAL. PT RESTING COMFORTABLY, BED AT LOWEST POSITION, CALL LIGHT WITHIN REACH, WILL ENDORSE CARE OF PT TO INCOMING NURSE, FALL AND SAFETY PRECAUTIONS IN PLACE. ALL NEEDS MET THROUGHOUT SHIFT.
[2020-01-03 20:00] VITALS: BP_SYST 120
[2020-01-04] MEDS: HYDROmorphone 2 MG/ML VIAL IVP PRN ×4 (03:21→18:32)
[2020-01-04 03:30] VITALS: BP_SYST 102
--- NOTE | 2020-01-04 07:10 | NUR ---
Received patient and report from [facility] shift nurse. Patient in no acute distress. Side rails x 3 up. Call light with in reach. Patient awake, alert, oriented. Denies pain. Breathing even and unlabored on room air. Call light with in reach.
--- NOTE | 2020-01-04 07:34 | NUR ---
REPORT GIVEN TO THE DAY SHIFT NURSE ABOUT THE RIGHT ANTECUBITAL WOUND FROM THE IV INSERTION SITE,. AND THAT THE PATIENT DESATURATES OCCASIONALLY
[2020-01-04 07:47] LABS: BASOPHILS % (AUTO) 0.9 % (0.0-2.0); EOSINOPHILS # (AUTO) 0.1 K/uL (0.0-0.4); EOSINOPHILS % (AUTO) 2.5 % (0.0-4.0); HEMATOCRIT 37.2 % (36-54); HEMOGLOBIN 12.6 g/dL (14.0-18.0); LYMPHOCYTES # (AUTO) 1.4 K/uL (1.0-5.5); LYMPHOCYTES % (AUTO) 26.1 % (20.5-51.5); MEAN CORPUSCULAR HEMOGLOBIN 30 pg (27-31); MEAN CORPUSCULAR HGB CONC 34 % (32-36); MEAN CORPUSCULAR VOLUME 88 fL (79.0-98.0); MONOCYTES # (AUTO) 0.5 K/uL (0.0-1.0); MONOCYTES % (AUTO) 9.1 % (1.7-9.3); NEUTROPHILS # (AUTO) 3.3 K/uL (1.8-7.7); NEUTROPHILS % (AUTO) 61.4 % (40.0-70.0); PLATELET COUNT (AUTO) 454 K/uL (130-430); RED BLOOD CELL COUNT(AUTO) 4.25 MIL/uL (4.2-6.2); RED CELL DISTRIBUTION WIDTH 13.5 % (9.0-15.0); WHITE BLOOD COUNT (AUTO) 5.4 K/uL (4.8-10.8)
[2020-01-04 08:00] VITALS: BP_SYST 105
[2020-01-04] MEDS: FAMOTIDINE 20 MG TABLET PO SCH (08:54)
[2020-01-04] MEDS: GABAPENTIN 100 MG CAPSULE PO SCH ×2 (08:54→21:09)
[2020-01-04] MEDS: DOCUSATE SODIUM 100 MG CAPSULE PO PRN (08:55)
[2020-01-04] MEDS: ENOXAPARIN SODIUM 100 MG/ML SYRINGE SUBCUT SCH ×2 (08:57→21:11)
[2020-01-04 10:25] LABS: INR 1.4 (0.80-1.20); PROTHROMBIN TIME 13.9 SECS (9.5-12.5)
[2020-01-04 12:00] VITALS: BP_SYST 115
[2020-01-04 16:00] VITALS: BP_SYST 121
[2020-01-04] MEDS ORDERED: WARFARIN SODIUM 3 MG TABLET PO SCH (18:00)
[2020-01-04 20:00] VITALS: BP_SYST 123
[2020-01-05 01:45] VITALS: BP_SYST 99
[2020-01-05 02:55] VITALS: BP_SYST 111
[2020-01-05] MEDS: HYDROmorphone 2 MG/ML VIAL IVP PRN ×4 (03:00→21:20)
--- NOTE | 2020-01-05 06:38 | NUR ---
asleep.ble to turn to sides and encouraged to turn to sides voids via th urinal
--- NOTE | 2020-01-05 07:15 | NUR ---
Received patient from [facility] shift nurse. Patient in no acute distress. Breathing even and unlabored. Awake, alert, oriented. Side rails x 3 up. Call light with in reach.
[2020-01-05 08:00] VITALS: BP_SYST 117
[2020-01-05] MEDS: FAMOTIDINE 20 MG TABLET PO SCH (09:38)
[2020-01-05] MEDS: ENOXAPARIN SODIUM 100 MG/ML SYRINGE SUBCUT SCH ×2 (09:39→21:23)
[2020-01-05] MEDS: GABAPENTIN 100 MG CAPSULE PO SCH ×2 (09:39→21:19)
[2020-01-05 10:19] LABS: INR 1.5 (0.80-1.20); PROTHROMBIN TIME 15.2 SECS (9.5-12.5)
[2020-01-05 12:00] VITALS: BP_SYST 121
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
--- NOTE | 2020-01-05 14:03 | NUR ---
Dietitian Recommendations * Continue: 2 gm Na diet w/ Ensure Clear TID, Judd BID (supplements provide an additional ~900 kcal/day, 29 gm protein/day) * Encourage pt to increase PO intake. Please see Nutrition F/U note for details. RADHA, RD
[2020-01-05 16:00] VITALS: BP_SYST 115
[2020-01-05] MEDS: WARFARIN SODIUM 7.5 MG TABLET PO SCH (18:33)
--- NOTE | 2020-01-05 19:20 | NUR ---
Endorsed patient to oncoming shift nurse. Patient denies pain. In no acute distress. Alert, oriented, awake with at bedside. Breathing even and unlabored, no SOB of breath. Call light with in reach. Side rails x 3 up.
[2020-01-05 20:00] VITALS: BP_SYST 123
--- NOTE | 2020-01-05 20:30 | NUR ---
WITH COMPLAINTS OF PAIN TO THE LOWER BACK BUT THE MEDICATION DILAUDID WAS GIVEN AT 1844 AND NOT YET DUE, PATIENT IS MADE AWARE AND WILL WAIT FOR THE MEDICATION TO BE DUE,
[2020-01-06 01:13] VITALS: BP_SYST 116
[2020-01-06 04:00] VITALS: BP_SYST 118
[2020-01-06] MEDS: HYDROmorphone 2 MG/ML VIAL IVP PRN ×4 (05:54→21:46)
[2020-01-06 07:28] LABS: BASOPHILS # (AUTO) 0.1 K/uL (0.0-0.2); BASOPHILS % (AUTO) 1.2 % (0.0-2.0); EOSINOPHILS # (AUTO) 0.1 K/uL (0.0-0.4); EOSINOPHILS % (AUTO) 1.4 % (0.0-4.0); HEMATOCRIT 42.8 % (36-54); HEMOGLOBIN 14.4 g/dL (14.0-18.0); LYMPHOCYTES # (AUTO) 1.3 K/uL (1.0-5.5); MEAN CORPUSCULAR HEMOGLOBIN 29 pg (27-31); MEAN CORPUSCULAR HGB CONC 34 % (32-36); MEAN CORPUSCULAR VOLUME 88 fL (79.0-98.0); MONOCYTES # (AUTO) 0.4 K/uL (0.0-1.0); MONOCYTES % (AUTO) 7.9 % (1.7-9.3); NEUTROPHILS # (AUTO) 3.7 K/uL (1.8-7.7); NEUTROPHILS % (AUTO) 66.5 % (40.0-70.0); PLATELET COUNT (AUTO) 499 K/uL (130-430); RED BLOOD CELL COUNT(AUTO) 4.88 MIL/uL (4.2-6.2); RED CELL DISTRIBUTION WIDTH 13.7 % (9.0-15.0); WHITE BLOOD COUNT (AUTO) 5.6 K/uL (4.8-10.8)
[2020-01-06 07:51] LABS: CALCIUM 9.1 mg/dL (8.4-11.0); CREATININE 0.64 mg/dL (0.55-1.30); POTASSIUM 3.8 mmol/L (3.5-5.1)
[2020-01-06 08:04] LABS: INR 1.8 (0.80-1.20)
--- NOTE | 2020-01-06 08:50 | NUR ---
Received patient from [facility] shift nurse. Patient awake, alert, oriented in bed with side rails x [address]. In no acute distress. Breathing even and unlabored. Call light with in reach.
[2020-01-06] MEDS: FAMOTIDINE 20 MG TABLET PO SCH (10:27)
[2020-01-06] MEDS: GABAPENTIN 100 MG CAPSULE PO SCH ×2 (10:27→21:32)
[2020-01-06] MEDS: ENOXAPARIN SODIUM 100 MG/ML SYRINGE SUBCUT SCH ×2 (10:28→21:30)
--- NOTE | 2020-01-06 11:35 | NUR ---
WOUND EVALUATION: Wound Consult received for a low Fransico score. Patient received in a [place] Bed with an IsoFlex JANAY mattress, awake, alert, and oriented. 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 Fransico Score is a 17. Integumentary Assessment: 1. Left Buttock: Dry excoriation, present on admission. No odor, no drainage. Recommend: Cleanse site with mild soap and water. Pat dry. Apply moisture barrier cream to site. Perform site care daily, as needed for soiling. 2. Right Antecubital Joint: Scab over an old IV site. Scab has 100% yellow material. No odor, no drainage. So-scab intact. Dry, stable. No erythema, edema or weeping. Scab measures 0.5 cm x 0.3 cm. Recommend: No dressing needed. Continue to monitor site every shift. Also recommend: Encourage and assist patient as needed with repositioning side to side only every 2 hours with pillow support and off-load pressure areas with pillows for pressure re-distribution. Offload, elevate and float bilateral heels with pillows. Perform skin care and monitor skin integrity Q shift. Use moisture barrier cream on buttocks and other moisture susceptible areas QID and as needed for soiling.
[2020-01-06 12:15] VITALS: BP_SYST 107
--- NOTE | 2020-01-06 12:58 | NUR ---
PAGED PAGED HEIDY JEWELL AT [phone] SPOKE WITH REAL.
--- NOTE | 2020-01-06 13:39 | NUR ---
Reported to MD Szymanski via telephone patient Factor 2, DNA analysis collected 12/28 result negative and Factor 8 antigen result 318 as requested by lab. No new orders.
[2020-01-06] MEDS: HYDROcodone/ACETAMIN 5-325 MG TAB (NORCO/ VICODIN) PO PRN (14:13)
[2020-01-06 16:07] VITALS: BP_SYST 108
--- NOTE | 2020-01-06 18:10 | NUR ---
Patient crying in bed. Asked patient what is wrong. Patient stated I don't want to be hear anymore. Encouraged patient to express feelings and to distract self with television or reading. Offered patient Ativan already placed in order, patient accepted.
[2020-01-06] MEDS: WARFARIN SODIUM 7.5 MG TABLET PO SCH (18:30)
--- NOTE | 2020-01-06 19:25 | NUR ---
Endorsed patient to NOC shift nurse. Patient awake, alert, oriented in bed. Side rails x 3 up. In no acute distress. Breathing even and unlabored Call light with in reach.
[2020-01-06] MEDS: DOCUSATE SODIUM 100 MG CAPSULE PO PRN (21:27)
[2020-01-06 23:51] VITALS: BP_SYST 108
[2020-01-07] MEDS: HYDROmorphone 2 MG/ML VIAL IVP PRN ×2 (04:23→11:39)
[2020-01-07 08:00] VITALS: BP_SYST 117
--- NOTE | 2020-01-07 08:00 | NUR ---
Initial notes- Pt in bed awake, alert and oriented. denies any chest pain or shortness of breath. No acute distress noted. safety precaution observed. call light in reach. Enc. to call for help as needed.
[2020-01-07 08:59] LABS: INR 2.1 (0.80-1.20); PROTHROMBIN TIME 21.3 SECS (9.5-12.5)
[2020-01-07] MEDS: GABAPENTIN 100 MG CAPSULE PO SCH (09:07)
[2020-01-07] MEDS: FAMOTIDINE 20 MG TABLET PO SCH (09:07)
[2020-01-07] MEDS: ENOXAPARIN SODIUM 100 MG/ML SYRINGE SUBCUT SCH (09:11)
--- NOTE | 2020-01-07 09:40 | NUR ---
Pt is walking with physical therapist at this time using cane.
--- NOTE | 2020-01-07 10:30 | NUR ---
Notes- Spoke to garnett room worker to give pt follow up resources, per social services specialist, the patient's knows what to do already.
[2020-01-07 10:41] VITALS: BP_SYST 117
--- NOTE | 2020-01-07 11:30 | NUR ---
Spoke to pharmacist and okayed to give 6mg of coumadin upon discharge.
--- NOTE | 2020-01-07 12:18 | NUR ---
Discharge D/c pt home accompanied by . pain is controlled at this time. ambulate with a cane. discharge instruction and prescription given and discussed with patient and . Pt and verbalize understanding. ivl removed. no distress noted.
[2020-01-07 12:20] VITALS: BP_SYST 127
[2020-01-07] MEDS ORDERED: WARFARIN SODIUM 6 MG TABLET PO ONE (18:00)
--- NOTE | 2020-01-09 10:59 | NUR ---
PHYSICAL THERAPY CO-SIGN The Physical Therapy Progress Notes documented by Shear Setter have been reviewed. Reviewed/Co-Signed by: Dwayne Zamora PT Documentation Done by: AZALEA GUERRERO PTA Addendum: 01/09/20 at 1102 by Dwayne Zamora PT Amended: Links added.
--- NOTE | 2020-01-09 11:01 | NUR ---
PHYSICAL THERAPY CO-SIGN The Physical Therapy Progress Notes documented by Animated Cartoons Painter have been reviewed. Reviewed/Co-Signed by: Dwayne Zamora PT Documentation Done by: AZALEA GUERRERO PTA Addendum: 01/09/20 at 1102 by Dwayne Zamora PT Amended: Links added.
== END 2020-01-07 12:20 | disposition home or self-care (01) | DRG 197 ==
LOC: SED 21:51 → STU 12-27 03:55 → SIC 12-27 05:50 → SMU 12-27 15:28 → STU 12-27 15:33 → SIC 12-27 15:39 → STU 12-30 17:40
PROVIDERS: ADMIT General Practice; ATTEND General Practice
DX: I82.432 Acute embolism and thrombosis of left popliteal vein (principal); I26.99 Other pulmonary embolism without acute cor pulmonale; I81 Portal vein thrombosis; J18.9 Pneumonia, unspecified organism; D68.59 Other primary thrombophilia; G81.94 Hemiplegia, unspecified affecting left nondominant side; K76.0 Fatty (change of) liver, not elsewhere classified; I82.412 Acute embolism and thrombosis of left femoral vein; R73.9 Hyperglycemia, unspecified; I82.442 Acute embolism and thrombosis of left tibial vein; N39.0 Urinary tract infection, site not specified; R09.02 Hypoxemia; Z79.01 Long term (current) use of anticoagulants; Z79.899 Other long term (current) drug therapy; Z56.0 Unemployment, unspecified
CPT/HCPCS: 36415; 36600; 70450-TC; 71045; 71275; 80048; 80053; 81000-TC; 81403; 81407; 81479; 82550-TC; 82803-TC; 83036; 83735-TC; 83880; 84484; 85025; 85300; 85302; 85306; 85379; 85384-TC; 85610-TC; 85730-TC; 87040-TC; 87081; 87086; 93005; 93306; 93970; 96372; 96374; 96375; 97110-GP; 97112-GP; 97116-GP; 97530-GP; 99285; G0378; J0692; J1170; J1650; J2060; J2270; J3010; J7030; J7042; J7060; Q0161; Q9967